=== PATIENT | female | born 1980 | race African-American/Black ===

== ENCOUNTER 2018-07-06 20:01 | Emergency (ER) | payer BC ==
[2018-07-06] MEDS ORDERED: diphenhydrAMINE 50 MG/ML SDV ONE (20:18)
[2018-07-06] MEDS ORDERED: methylPREDNISolone Sodium Succinate 125 MG/2 ML SDV ONE (20:18)
[2018-07-06] MEDS ORDERED: EPINEPHrine 1 MG/ML SDV ONE (20:19)
--- NOTE | 2018-07-06 20:21 | EDM.PDOC ---
ED HPI GENERAL MEDICAL PROBLEM - General Chief Complaint: ENT Problem Stated Complaint: ALLER REACTION Time Seen by Provider: 07/06/18 21:24 - History of Present Illness INITIAL COMMENTS - FREE TEXT/NARRATIVE: HISTORY AND PHYSICAL: History of present illness: Patient 37-year-old black female presents with a presumptive food allergy with shortness of breath and difficulty swallowing possibly related to kiwi which was her only new exposure. This event occurred subsequent to a bowl of fruit that included kiwi was a new food to her. Patient denies prior episodes Review of systems: As per history of present illness and below otherwise all systems reviewed and negative. Past medical history: As per history of present illness and as reviewed below otherwise noncontributory. Surgical history: As per history of present illness and as reviewed below otherwise noncontributory. Social history: No reported history of drug or alcohol abuse. Family history: As per history of present illness and as reviewed below otherwise noncontributory. Physical exam: HEENT: Atraumatic, normocephalic, pupils reactive, negative for conjunctival pallor or scleral icterus, mucous membranes moist, throat clear, neck supple, nontender, trachea midline. Lungs: coarse breath sounds with mild wheezing noted breath sounds equal bilaterally, chest nontender. Heart: S1S2, regular, negative for clicks, rubs, or JVD. Abdomen: Soft, nondistended, nontender. Negative for masses or hepatosplenomegaly. Negative for costovertebral tenderness. Pelvis: Stable nontender. Genitourinary: Deferred. Rectal: Deferred. Extremities: Atraumatic, negative for cords or calf pain. Neurovascular unremarkable. Neuro: Awake, alert, oriented. Cranial nerves II through XII unremarkable. Cerebellum unremarkable. Motor and sensory unremarkable throughout. Exam nonfocal. Diagnostics: None Therapeutics: Epi 0.3 IM Solu-Medrol 125 IV Benadryl 50 IV Impression: #1 acute allergic reaction Definitive disposition and diagnosis as appropriate pending reevaluation and review of above. - Related Data Allergies Allergy/AdvReac Type Severity Reaction Status Date / Time No Known Allergies Allergy Verified 07/06/18 20:29 Home Meds: Home Meds . [No Known Home Meds] 07/06/18 [History] ED ROS GENERAL - Review of Systems Review Of Systems: ROS reveals no pertinent complaints other than HPI. ED EXAM, GENERAL - Physical Exam Exam: See Below (See dictation) Course - Vital Signs Text/Narrative:: Patient's emergency department course has been unremarkable she has resolution of symptoms and requests discharge home Last Recorded V/S: Last Vital Signs Temp 37.4 C 07/06/18 20:01 Pulse 104 H 07/06/18 20:01 Resp 18 07/06/18 20:01 BP 149/79 H 07/06/18 20:01 Pulse Ox 99 07/06/18 20:01 - Orders/Labs/Meds Meds: Medications Discontinued Medications Generic Name Dose Route Start Last Admin Trade Name Moose PRN Reason Stop Dose Admin Diphenhydramine HCl Confirm 07/06/18 20:18 07/06/18 20:28 Benadryl Administered 07/06/18 20:19 Not Given Dose 50 mg .ROUTE .STK-MED ONE Diphenhydramine HCl 50 mg 07/06/18 20:25 07/06/18 20:28 Benadryl IVPUSH 07/06/18 20:26 50 mg ONETIME ONE Administration Epinephrine HCl Confirm 07/06/18 20:19 07/06/18 20:28 Adrenalin Administered 07/06/18 20:20 Not Given Dose 1 mg .ROUTE .STK-MED ONE Epinephrine HCl 0.3 mg 07/06/18 20:26 07/06/18 20:27 Adrenalin SUBCUT 07/06/18 20:27 0.3 mg ONETIME ONE Administration Methylprednisolone Sodium Succinate Confirm 07/06/18 20:18 07/06/18 20:28 Solu-Medrol Administered 07/06/18 20:19 Not Given Dose 125 mg .ROUTE .STK-MED ONE Methylprednisolone Sodium Succinate 125 mg 07/06/18 20:25 07/06/18 20:27 Solu-Medrol IVPUSH 07/06/18 20:26 125 mg ONETIME ONE Administration Departure - Departure Time of Disposition: 21:25 Disposition: Home, Self-Care 01 Condition: Good Clinical Impression: Allergic reaction - Discharge Information Referrals: PCP,Unknown [Primary Care Provider] - Forms: ED Department Discharge Additional Instructions: The following information is given to patients seen in the emergency department who are being discharged to home. This information is to outline your options for follow-up care. We provide all patients seen in our emergency department with a follow-up referral. The need for follow-up, as well as the timing and circumstances, are variable depending upon the specifics of your emergency department visit. If you don't have a primary care physician on staff, we will provide you with a referral. We always advise you to contact your personal physician following an emergency department visit to inform them of the circumstance of the visit and for follow-up with them and/or the need for any referrals to a consulting specialist. The emergency department will also refer you to a specialist when appropriate. This referral assures that you have the opportunity for followup care with a specialist. All of these measure are taken in an effort to provide you with optimal care, which includes your followup. Under all circumstances we always encourage you to contact your private physician who remains a resource for coordinating your care. When calling for followup care, please make the office aware that this follow-up is from your recent emergency room visit. If for any reason you are refused follow-up, please contact the [facility] emergency department at and asked to speak to the emergency department charge nurse. [facility] [address] [place] [id number] [address]ens as directed follow-up primary care or clinic above avoid possible allergens of all sorts including kiwi as discussed return as needed as discussed
[2018-07-06] MEDS ORDERED: methylPREDNISolone Sodium Succinate 125 MG/2 ML SDV IVPUSH ONE (20:25)
[2018-07-06] MEDS ORDERED: diphenhydrAMINE 50 MG/ML SDV IVPUSH ONE (20:25)
[2018-07-06] MEDS ORDERED: EPINEPHrine 1 MG/ML SDV SUBCUT ONE (20:26)
== END 2018-07-06 21:30 | disposition home or self-care (01) ==
LOC: MW.ED 20:01
DX: T78.1XXA Other adverse food reactions, not elsewhere classified, initial encounter (principal); R06.02 Shortness of breath
CPT/HCPCS: 96372; 96374; 96375; 99283; J0171; J1200; J2930

== ENCOUNTER 2020-12-03 21:14 | Emergency (ER) | payer OTHER ==
[2020-12-03] MEDS ORDERED: Metoclopramide 10 MG/2 ML SDV IVPUSH ONE (21:30)
[2020-12-03] MEDS ORDERED: diphenhydrAMINE 50 MG/ML SDV IVPUSH ONE (21:30)
--- NOTE | 2020-12-03 21:33 | EDM.PDOC ---
ED HPI GENERAL MEDICAL PROBLEM - General Chief Complaint: Headache Stated Complaint: MIGRAINE Time Seen by Provider: 12/03/20 21:15 Source of Information: Reports: Patient History Limitations: Reports: No Limitations - History of Present Illness INITIAL COMMENTS - FREE TEXT/NARRATIVE: This is a 40-year-old female who presents today for headache. Patient has regular headaches and states she gets 1 about 3 times a week. She was outside working in the sun when extremity. She takes regular medication is not helping out today. She denies any vision changes numbness to her extremities or any other complaints. Headache Pain Score (Numeric/FACES): 10 - Related Data Allergies Allergy/AdvReac Type Severity Reaction Status Date / Time No Known Allergies Allergy Verified 12/03/20 21:22 Home Meds: Home Meds Benazepril HCl 1 tab PO DAILY 12/03/20 [History] Ferrous Sulfate 324 mg PO DAILY 12/03/20 [History] Furosemide 20 mg PO DAILY 12/03/20 [History] Phentermine HCl 1 cap PO DAILY 12/03/20 [History] Propranolol [Inderal] 10 mg PO DAILY 12/03/20 [History] Semaglutide [Rybelsus] 14 mg PO DAILY 12/03/20 [History] Zaleplon [Sonata] 5 mg PO BEDTIME PRN 12/03/20 [History] amLODIPine [Norvasc] 5 mg PO DAILY 12/03/20 [History] metFORMIN [Glucophage XR] 1 tab PO DAILY 12/03/20 [History] Past Medical History - Past Health History Medical/Surgical History: Denies Medical/Surgical History ED ROS GENERAL - Review of Systems Review Of Systems: See Below Constitutional: Reports: No Symptoms HEENT: Reports: No Symptoms Respiratory: Reports: No Symptoms Cardiovascular: Reports: No Symptoms Endocrine: Reports: No Symptoms GI/Abdominal: Reports: No Symptoms : Reports: No Symptoms Musculoskeletal: Reports: No Symptoms Skin: Reports: No Symptoms Neurological: Reports: Headache Psychiatric: Reports: No Symptoms Hematologic/Lymphatic: Reports: No Symptoms Immunologic: Reports: No Symptoms - Physical Exam Exam: See Below Exam Limited By: No Limitations General Appearance: Alert, WD/WN, No Apparent Distress Eye Exam: Bilateral Eye: EOMI, PERRL Head Exam: Atraumatic, Normocephalic Respiratory/Chest: No Respiratory Distress, Lungs Clear, Normal Breath Sounds Cardiovascular: Normal Peripheral Pulses, Regular Rate, Rhythm Neuro Exam (Abbreviated): Alert, Oriented, Normal Cognition, Normal Gait Extremities: Normal Inspection, Normal Range of Motion Course - Vital Signs Last Recorded V/S: Last Vital Signs Temp 97.1 F 12/03/20 21:24 Pulse 77 12/03/20 21:24 Resp 18 12/03/20 21:24 BP 166/91 H 12/03/20 21:24 Pulse Ox 98 12/03/20 21:24 - Orders/Labs/Meds Meds: Medications Discontinued Medications Generic Name Dose Route Start Last Admin Trade Name Freq PRN Reason Stop Dose Admin Diphenhydramine HCl 25 mg 12/03/20 21:30 12/03/20 21:37 Diphenhydramine 50 Mg/Ml Sdv IVPUSH 12/03/20 21:31 25 mg ONETIME ONE Administration Metoclopramide HCl 10 mg 12/03/20 21:30 12/03/20 21:37 Metoclopramide 10 Mg/2 Ml Sdv IVPUSH 12/03/20 21:31 10 mg ONETIME ONE Administration Departure - Departure Time of Disposition: 22:24 Disposition: Home, Self-Care 01 Condition: Good Clinical Impression: Migraine - Discharge Information *PRESCRIPTION DRUG MONITORING PROGRAM REVIEWED*: Not Applicable *COPY OF PRESCRIPTION DRUG MONITORING REPORT IN PATIENT TITUS: Not Applicable Instructions: Migraine Headache, [id number] Referrals: Graciela aRlph NP [Primary Care Provider] - Forms: ED Department Discharge Additional Instructions: The following information is given to patients seen in the emergency department who are being discharged to home. This information is to outline your options for follow-up care. We provide all patients seen in our emergency department with a follow-up referral. The need for follow-up, as well as the timing and circumstances, are variable depending upon the specifics of your emergency department visit. If you don't have a primary care physician on staff, we will provide you with a referral. We always advise you to contact your personal physician following an emergency department visit to inform them of the circumstance of the visit and for follow-up with them and/or the need for any referrals to a consulting specialist. The emergency department will also refer you to a specialist when appropriate. This referral assures that you have the opportunity for follow-up care with a specialist. All of these measure are taken in an effort to provide you with optimal care, which includes your follow-up. Under all circumstances we always encourage you to contact your private physician who remains a resource for coordinating your care. When calling for follow-up care, please make the office aware that this follow-up is from your recent emergency room visit. If for any reason you are refused follow-up, please contact the [facility] Emergency Department at and asked to speak to the emergency department charge nurse. Please follow up with your primary care physician. If you do not have a primary care physician, see below: [facility] [address] [place] [id number] [facility] [address] [place] [id number] You were seen today for headache. We gave you medication called Marcia to help out with your migraine headaches. It resolved your symptoms. Please continue take your regular prescribed medications for your headache. If you have any other concerning signs or symptoms please return to ED. Sepsis Event Note (ED) - Focused Exam Vital Signs: Vital Signs Temp Pulse Resp BP Pulse Ox 12/03/20 21:24 97.1 F 77 18 166/91 H 98 - Assessment/Plan Plan: Patient is a 40-year-old female who presents today for recurrent headaches. Patient has no neurological deficits. We will try to control patient headache and reassess.
== END 2020-12-03 22:42 | disposition home or self-care (01) ==
LOC: MW.ED 21:14
DX: G43.909 Migraine, unspecified, not intractable, without status migrainosus (principal); Z79.899 Other long term (current) drug therapy
CPT/HCPCS: 96374; 96375; 99283; J1200; J2765

== ENCOUNTER 2021-11-18 21:48 | Emergency (ER) | payer BC ==
[2021-11-18] MEDS ORDERED: Ketorolac 30 MG/ML SDV IVPUSH ONE (22:24)
[2021-11-18] MEDS ORDERED: diphenhydrAMINE 50 MG/ML SDV IVPUSH ONE (22:24)
[2021-11-18] MEDS ORDERED: Metoclopramide 10 MG/2 ML SDV IVPUSH ONE (22:24)
[2021-11-18] MEDS ORDERED: Sodium Chloride 0.9% 1,000 ML IV ONE (22:24)
== END 2021-11-19 00:31 | disposition home or self-care (01) ==
LOC: MW.ED 21:48
DX: G43.909 Migraine, unspecified, not intractable, without status migrainosus (principal); I10 Essential (primary) hypertension; E11.9 Type 2 diabetes mellitus without complications; Z79.899 Other long term (current) drug therapy; Z86.16 Personal history of COVID-19
CPT/HCPCS: 96361; 96374; 96375; 99283; J1200; J1885; J2765; J7030

== ENCOUNTER 2022-02-10 01:01 | Emergency (ER) | payer BC ==
[2022-02-10] MEDS ORDERED: Ketorolac 30 MG/ML SDV IVPUSH ONE (01:47)
[2022-02-10] MEDS ORDERED: Dexamethasone 10 MG/ML SDV IVPUSH ONE (01:47)
[2022-02-10] MEDS ORDERED: Metoclopramide 10 MG/2 ML SDV IVPUSH ONE (01:47)
[2022-02-10] MEDS ORDERED: Sodium Chloride 0.9% 2.5 ML Syringe FLUSH PRN (01:47)
[2022-02-10] MEDS ORDERED: diphenhydrAMINE 50 MG/ML SDV IVPUSH ONE (01:47)
[2022-02-10] MEDS ORDERED: Sodium Chloride 0.9% 10 ML Syringe FLUSH PRN (01:47)
[2022-02-10] MEDS ORDERED: Sodium Chloride 0.9% 1,000 ML IV ONE (01:47)
[2022-02-10 02:43] LABS: CARBON DIOXIDE,CO2 26.1 mmol/L (21.0-32.0); POTASSIUM,K 3.8 mmol/L (3.5-5.1)
== END 2022-02-10 03:24 | disposition home or self-care (01) ==
LOC: MW.ED 01:01
DX: G43.909 Migraine, unspecified, not intractable, without status migrainosus (principal); I10 Essential (primary) hypertension; E11.9 Type 2 diabetes mellitus without complications; Z79.899 Other long term (current) drug therapy; Z79.84 Long term (current) use of oral hypoglycemic drugs; Z86.16 Personal history of COVID-19
CPT/HCPCS: 36415; 80053; 85025; 96361; 96374; 96375; 99283; J1100; J1200; J1885; J2765; J3490; J7030; 99284

== ENCOUNTER 2022-10-16 19:14 | Emergency (ER) | payer BC | END 2022-10-16 21:00 | disposition left against medical advice (07) | LOC: MW.ED 19:14 | DX: Z53.21 Procedure and treatment not carried out due to patient leaving prior to being seen by health care provider (principal) ==